=== PATIENT | male | born 1960 | race Caucasian/White ===

== ENCOUNTER → 2017-09-28 | Outpatient (CLI) | payer BC ==
[2017-09-28 14:49] LABS: PROTHROMBIN TIME (PATIENT) 10.6 SECONDS (9.0-12.0)
[2017-09-28 14:52] LABS: CHOLESTEROL/HDL RATIO 2.4
[2017-09-28 14:58] LABS: BASO % 0.5 %; BASO ABS # 0.02 K/uL (0-0.2); COMPLETE YES; EOS % 0.8 %; HEMATOCRIT 46.4 % (42-52); LYMPH % 39.9 %; LYMPH ABS # 1.57 K/uL (1.2-3.4); MEAN CELL VOLUME 101.1 fL (80-100); MEAN CORPUSCULAR HEMOGLOBIN 33.6 pg (25-34); MEAN CORPUSCULAR HGB CONC 33.2 g/dl (32-36); MEAN PLATELET VOLUME 11.7 fL (7.4-10.4); MONO % 10.2 %; NEUT % 48.6 %; PLATELET COUNT 186 K/uL (130-400); RED BLOOD COUNT 4.59 M/uL (4.7-6.1); WHITE BLOOD COUNT 3.93 K/uL (4.8-10.8)
== END | disposition home or self-care (01) ==
LOC: C.LABSPEC 14:00
PROVIDERS: ATTEND Family Medicine
DX: Z01.812 Encounter for preprocedural laboratory examination (principal); Z12.5 Encounter for screening for malignant neoplasm of prostate; Z13.220 Encounter for screening for lipoid disorders

== ENCOUNTER → 2017-10-18 | Day surgery (SDC) | payer BC, OTHER ==
[2017-10-09 08:34] VITALS: Ht 186.7 cm; Wt 92.3 kg
[~2017-10-18] VITALS: Ht 186.7 cm; Wt 92.3 kg
[~2017-10-18] MED LIST: ATROPINE SULFATE 0.1 MG/ML 5ML SYR IV PRN; BUPIVACAINE/EPINEPHRINE 0.25% 1:200,000 30 ML VIAL ONE; CEFAZOLIN 2000MG IV PUSH 10 ML IV SCH; DEXAMETHASONE SOD INJ 4 MG/ML VIAL ONE; EpHEDrine SULFATE INJ 50 MG/ML AMP IV PRN; FENTANYL CITRATE INJ 50 MCG/1 ML 2 ML VIAL IV PRN; FENTANYL CITRATE INJ 50 MCG/1 ML 2 ML VIAL ONE; HYDR-5688 PO; HYDROCODONE/ACETAMOPHEN 5/325MG TAB PO PRN; LACTATED RINGER'S 1000ML 1,000 ML IV SCH; LIDOCAINE HCL 2% 2 ML VIAL (20MG/ML) ONE; METH10TA4 PO; MIDAZOLAM HCL 1 MG/ML 2ML VIAL ONE; ONDANSETRON INJ 2 MG/ML 2 ML VIAL IV PRN; ONDANSETRON INJ 2 MG/ML 2 ML VIAL ONE; PROPOFOL IV EMULSION 10 MG/ML 20 ML VIAL IV ONE; SODIUM CHLORIDE 0.9% 1000ML 1,000 ML IV SCH
--- NOTE | 2017-10-18 08:10 | History & Physical Bridge Note ---
H&P Re-Evaluation Bridge Note: I have examined the patient, reviewed the History & Physical and in the interval since the performance of the History & Physical I have noted the following changes of clinical significance: No changes noted
--- NOTE | 2017-10-18 09:23 | [facility] Post Operative Brief Note ---
Immediate Operative Summary Operative Date Oct 18, 2017. Pre-Operative Diagnosis Lateral epicondylitis right elbow Post-Operative Diagnosis Same as preop Procedure(s) Performed Right Elbow Nirschl Procedure Surgeon Dr. Lane Brine Well Operator Surgeon(s) Arturo Rice PA-C Estimated Blood Loss 5 mL Findings as above Specimens A: Lateral epicondylitis right elbow Complication(s) None Disposition Recovery Room / PACU
--- NOTE | 2017-10-18 09:28 | Discharge Instructions-SurgCtr ---
Discharge Instructions Date of Service Oct 18, 2017. Visit Reason for Visit: Lateral Epicondylitis Right Elbow Discharge Discharge Diagnosis / Problem: SAME ABOVE Discharge Goals Goal(s): Decrease discomfort, Improve function Activity Recommendations Activity Limitations: as noted below Lifting Limitations: until after follow-up appointment Exercise/Sports Limitations: until after follow-up appointment Shower/Bathe: tomorrow Anesthesia . Post Anesthesia Instructions: If you have had General Anesthesia or IV Sedation: * Do not drive today. * Resume driving when surgeon permits. * Do not make important decisions or sign legal documents today. * Call surgeon for: 1. Temperature elevations greater than 101 degrees F. 2. Uncontrollable pain. 3. Excessive bleeding. 4. Persistent nausea and vomiting. 5. Medication intolerance (nausea, vomiting or rash). * For nausea and vomiting use only clear liquids such as: tea, soda, bouillon until nausea subsides, then gradually increase diet as tolerated. * If you have any concerns or questions, call your surgeon's office. If physician is unavailable and it is an emergency, call 911 or go to the nearest emergency room. . Instructions / Follow-Up Instructions / Follow-Up MEDICATIONS: * Resume previous medications unless instructed otherwise by your surgeon. * Always take pain medication on a full stomach or with food to avoid upset stomach. * Do not drink alcohol or drive while taking narcotics. * Ibuprofen or Tylenol may be taken if narcotic not needed. SPECIAL CARE INSTRUCTIONS: __ None _X_ Keep extremity elevated and iced x 48 hours; apply ice 20-30 minutes 8-10 times/day. May remove at night. __ Sling __24 hrs/day __ Remove at night __ Shoulder Immobilizer __ 24 hrs/day __ Remove at night _X_ Dressing __ Maintain until seen in office, may shower with plastic over site _X_ Remove dressings in 24-48 hours and then may shower _X_ Cover incisions with band-aids after showering __ Do not remove steri-strips Call physician if chills or temperature rises above 102 degrees or pain unrelieved by prescribed pain medications at . . Diet Recommendations Home Diet: no limitations Fluid Restriction: None Procedures Procedures Performed: Right Elbow Nirschl Procedure Pending Studies Studies pending at discharge: no Work Instructions Return To Work: after follow-up Medical Emergencies . Who to Call and When: Medical Emergencies: If at any time you feel your situation is an emergency, please call 911 immediately. . Non-Emergent Contact Non-Emergency issues call your: Primary Care Provider Call Non-Emergent contact if: you have a fever, temperature is above 101.5 . . "Provider Documentation" section prepared by Arturo Rice. .
--- NOTE | 2017-10-18 09:53 | OPERATIVE REPORT ---
DATE OF OPERATION: 10/18/2017 PREOPERATIVE DIAGNOSIS: Chronic lateral epicondylitis of the right elbow. POSTOPERATIVE DIAGNOSIS: Same. PROCEDURE: Open Nirschl procedure of the right elbow. SURGEON: Dr. Austyn Lane. DESIGN ASSEMBLER: Brayan Rice PA-C, whose assistance was necessary for positioning the arm and helping with instrumentation and closure. ANESTHESIA: General. COMPLICATIONS: None. CONDITION: Stable to PACU. INDICATIONS: Kendall is a pleasant 57-year-old male who presented to my office with chronic right elbow pain. Clinical examination was diagnostic for lateral epicondylitis. He failed over a year of conservative treatment and was still having significant pain. He elected to undergo a tenotomy. DESCRIPTION OF PROCEDURE: On 10/18/2017, he arrived at [facility] for the above procedure. He was seen in the preoperative holding area and the operative extremity was identified and signed. He was given a preoperative antibiotic, taken back to the operating room, laid on the table in supine position and put under general anesthesia. The right elbow was then prepped and draped in the sterile fashion. Time-out was done and the patient's operative extremity was properly identified. A curvilinear incision was made around the lateral epicondyle. Dissection was taken down through the fascia and an incision was made between the extensor comminus and the extensor longus. The extensor brevis was then easily identified. There was some obvious orellana appearing and detached tissue from the extensor carpi radialis brevis. This tissue was excised with sharp dissection. It was sent to pathology. Significant time was spent ensuring complete resection of all the orellana appearing angiofibroblastic tissue. Care was taken not to disrupt the lateral collateral ligaments. A rongeur was then used to remove the lateral epicondyle. The wound was then irrigated. The bony bed was scraped and I was able to get good bleeding bone. The extensor communis and the extensor longus were repaired using 0 Vicryl suture and skin was then closed with 3-0 Vicryl and 4-0 nylon suture. He was then placed in a soft dressing and given a cock-up wrist splint. He was then extubated, transferred to a [facility] and taken to the postanesthesia care unit in stable condition. He tolerated the procedure well. I attest to the content of the Intraoperative Record and any orders documented therein. Any exception s are noted below.
[2017-10-18 10:37] VITALS: TEMP 36.4
--- NOTE | 2017-10-18 10:44 | Anesthesia Progress Nt - [facility] ---
Anesthesia Post Op Note Date & Time Oct 18, 2017 at 10:44 Vital Signs Pain Intensity: 4 Vital Signs Past 12 Hours Date Time Temp Pulse Resp B/P (MAP) Pulse Ox O2 Delivery O2 Flow Rate FiO2 10/18/17 10:37 36.4 53 18 147/92 (110) 95 Room Air 10/18/17 10:25 36.3 10/18/17 10:24 49 13 10/18/17 10:24 49 13 95 10/18/17 10:20 138/96 (107) 10/18/17 10:19 52 16 10/18/17 10:19 52 16 95 10/18/17 10:17 Room Air 10/18/17 10:15 132/82 (94) 10/18/17 10:14 48 13 98 10/18/17 10:14 49 13 10/18/17 10:10 128/87 (98) 10/18/17 10:09 49 15 10/18/17 10:09 48 15 98 10/18/17 10:05 130/85 (94) 10/18/17 10:04 58 11 99 10/18/17 10:04 56 11 10/18/17 10:00 127/85 (92) 10/18/17 09:59 49 14 10/18/17 09:59 49 14 99 10/18/17 09:55 134/83 (90) 10/18/17 09:54 49 14 99 10/18/17 09:54 50 14 10/18/17 09:50 133/85 (92) 10/18/17 09:49 53 15 10/18/17 09:49 53 15 99 10/18/17 09:45 139/87 (99) 10/18/17 09:44 54 13 98 10/18/17 09:44 56 13 10/18/17 09:40 124/75 (85) 10/18/17 09:39 53 15 10/18/17 09:39 53 15 98 10/18/17 09:35 111/76 (86) 10/18/17 09:34 50 13 97 10/18/17 09:34 50 13 10/18/17 09:30 117/70 (80) 10/18/17 09:29 50 13 97 10/18/17 09:29 50 13 10/18/17 09:26 118/70 (81) 10/18/17 09:24 36.3 52 14 118/70 97 Diffusion Mask 6 10/18/17 08:02 36.4 56 16 152/95 (114) 96 Room Air Notes Mental Status: alert / awake / arousable, participated in evaluation Pt Amnestic to Procedure: Yes Nausea / Vomiting: adequately controlled Pain: adequately controlled Airway Patency, RR, SpO2: stable & adequate BP & HR: stable & adequate Hydration State: stable & adequate Anesthetic Complications: no major complications apparent
[2017-10-18 11:16] VITALS: BP 134/80; PULSE 52; O2SAT 96
== END | disposition home or self-care (01) ==
LOC: X.SURG 07:56
PROVIDERS: ATTEND Orthopaedic Surgery
DX: M77.11 Lateral epicondylitis, right elbow (principal); Z98.890 Other specified postprocedural states; Z82.49 Family history of ischemic heart disease and other diseases of the circulatory system; F17.200 Nicotine dependence, unspecified, uncomplicated